=== PATIENT | male | born 1960 | race American Indian/Alaskan Native ===

== ENCOUNTER 2017-11-12 02:38 | Emergency (ER) | payer SELFPAY ==
[2017-11-12 02:46] VITALS: BMI 25.7
[2017-11-12 02:58] VITALS: TEMP 98.1
--- NOTE | 2017-11-12 03:01 | ED PDOC ---
Arrival/HPI - General Chief Complaint: Medical Clearance Time Seen by Provider: 11/12/17 02:39 Historian: Patient - History of Present Illness Narrative History of Present Illness (Text): 11/12/17 02:40 Rika Obando is a 57 year old male, who presents to the emergency department asking for a place to stay. Patient is currently asymptomatic and reports no other complaints. Time/Duration: Prior to Arrival Symptom Onset: Other (None) Past Medical History - Provider Review Nursing Documentation Reviewed: Yes - Infectious Disease Hx of Infectious Diseases: None - Tetanus Immunization Tetanus Immunization: Unknown - Past Medical History Past Medical History: No Previous - Psychiatric Hx Substance Use: No - Past Surgical History Past Surgical History: No Previous - Suicidal Assessment Feels Threatened In Home Enviroment: No Family/Social History - Physician Review Nursing Documentation Reviewed: Yes Family/Social History: Unknown Family HX Smoking Status: Former Smoker Hx Alcohol Use: Yes (occasional) Hx Substance Use: No Hx Substance Use Treatment: No Allergies/Home Meds Allergies/Adverse Reactions: Allergies No Known Allergies Allergy (Verified 01/11/15 16:52) Home Medications: Home Meds Medication Instructions Recorded Confirmed No Known Home Med 11/12/17 11/12/17 Review of Systems - Physician Review All systems were reviewed & negative as marked: Yes - Review of Systems Constitutional: absent: Fevers Respiratory: absent: SOB Cardiovascular: absent: Chest Pain Psychiatric: Other (Patient is looking for a place to stay in the emergency department ) Physical Exam Vital Signs Reviewed: Yes Vital Signs Temp Pulse Resp BP Pulse Ox 11/12/17 06:24 72 14 146/68 100 11/12/17 04:15 79 16 132/79 99 11/12/17 02:46 98.1 F 78 18 154/80 H 99 Temperature: Afebrile Blood Pressure: Hypertensive Pulse: Regular Respiratory Rate: Normal Appearance: Positive for: Well-Appearing, Non-Toxic, Comfortable Pain Distress: None Mental Status: Positive for: Alert and Oriented X 3 - Systems Exam Head: Present: Atraumatic, Normocephalic Pupils: Present: PERRL Extroacular Muscles: Present: EOMI Conjunctiva: Present: Normal Mouth: Present: Moist Mucous Membranes Nose (External): Present: Atraumatic Neurological: Present: GCS=15, CN II-XII Intact, Speech Normal Skin: Present: Warm, Dry, Normal Color. No: Rashes Psychiatric: Present: Alert, Oriented x 3, Normal Insight, Normal Concentration Medical Decision Making ED Course and Treatment: 11/12/17 Impression: 57 year old male who is currently asymptomatic and asking for a place to stay. Plan: -- Reassess and disposition Progress Notes: - Scribe Statement The provider has reviewed the documentation as recorded by the Lynnibe Salena Ortiz Provider Scribe Attestation: All medical record entries made by the Scribe were at my direction and personally dictated by me. I have reviewed the chart and agree that the record accurately reflects my personal performance of the history, physical exam, medical decision making, and the department course for this patient. I have also personally directed, reviewed, and agree with the discharge instructions and disposition. Disposition/Present on Arrival - Present on Arrival Any Indicators Present on Arrival: No History of DVT/PE: No History of Uncontrolled Diabetes: No Urinary Catheter: No History of Decub. Ulcer: No History Surgical Site Infection Following: None - Disposition Have Diagnosis and Disposition been Completed?: Yes Diagnosis: Homelessness Disposition: HOME/ ROUTINE Disposition Time: 06:30 Condition: GOOD Forms: [email or web address] (Ukrainian)
[2017-11-12 06:24] VITALS: BP 146/68; PULSE 72; RESP 14; O2SAT 100
[2017-11-12] MEDS ORDERED: Insulin Regular 1 UNITS/0.01 ML ML ONE (09:14)
== END 2017-11-12 06:56 | disposition home or self-care (01) ==
LOC: ED 02:38
DX: Z59.0 Homelessness (principal)